=== PATIENT | female | born 1960 | race African-American/Black ===

== ENCOUNTER → 2018-01-01 | Outpatient (CLI) | payer BC ==
[~2018-01-01] MED LIST: CRESTOR10 MG PO; MOTRIN800 MG PO; NAPROSYN500 MG PO; NOHOMEMEDS; NORCO 5/3251 TABLET PO; NORCO 7.5/321 TABLET PO; SYNTHROID75 MCG PO; VALIUM2 MG PO
== END | disposition home or self-care (01) ==
LOC: CDC 12:27
DX: Z01.810 Encounter for preprocedural cardiovascular examination (principal)
CPT/HCPCS: 93000

== ENCOUNTER 2018-01-03 05:30 | Day surgery (SDC) | payer BC ==
[~2018-01-03] VITALS: Ht 177.8 cm; Wt 86.0 kg
[~2018-01-03 05:30] MED LIST changes: -MOTRIN800 MG PO; -NORCO 5/3251 TABLET PO
[2018-01-03 06:04] VITALS: BP 133/78
[2018-01-03] MEDS ORDERED: NORCO 5/3251 TABLET PO (08:50)
[2018-01-03] MEDS ORDERED: MOTRIN800 MG PO (08:50)
[2018-01-03 10:15] VITALS: BP 140/65
[2018-01-03 11:10] VITALS: BP 124/59
[2018-01-03 12:00] VITALS: BP 142/69
== END 2018-01-03 12:00 | disposition home or self-care (01) ==
LOC: SDC
DX: N84.0 Polyp of corpus uteri (principal); N84.1 Polyp of cervix uteri; K21.9 Gastro-esophageal reflux disease without esophagitis; E03.9 Hypothyroidism, unspecified
CPT/HCPCS: 88305; J0131; J0330; J1100; J1170; J1885; J2250; J2405; J3010